=== PATIENT | male | born 1955 | race Two or more races ===

== ENCOUNTER 2019-09-04 22:07 | Inpatient (IN) | payer MEDICAID, OTHER ==
[~2019-09-04] VITALS: Ht 165.1 cm; Wt 59.5 kg
--- NOTE | 2019-09-04 22:44 | NUR ---
Patient brought in by flight RN x2. Received report and assumed patient care. Patient resting comfortably, reports pain is bearable. Family member is at bedside. x2 provider at bedside, assessing right lower leg. Awaiting orders.
[2019-09-04] MEDS ORDERED: DIPH,PERTUSS(ACELL),TET VAC/PF 0.5 ML IM-VACC ONE ×2 (22:54→23:00)
[2019-09-04] MEDS ORDERED: MORPHINE SULFATE 4 MG/ML, 1ML IVPush PRN (23:00)
[2019-09-04] MEDS ORDERED: PLEASE ENTER ALLERGIES MC SCH (23:00)
[2019-09-04] MEDS ORDERED: SODIUM CHLORIDE FLUSH 10ML SYR IVF ONE (23:00)
[2019-09-05] MEDS ORDERED: SUCCINYLCHOLINE 20 MG/ML, 10ML ONE
[2019-09-05] MEDS ORDERED: PROPOFOL 10 MG/ML, 20ML ONE
[2019-09-05] MEDS ORDERED: ONDANSETRON 2MG/ML, 2ML ONE
[2019-09-05] MEDS ORDERED: CEFAZOLIN 1,000 MG ONE
[2019-09-05] MEDS ORDERED: FENTANYL PF 100 MCG/2ML ONE (00:26)
[2019-09-05] MEDS ORDERED: OXYcodone 5 MG/5 ML ORAL.SOL UDC ONE (00:26)
[2019-09-05] MEDS ORDERED: hydrALAzine 20 MG/ML, 1ML IV PRN (00:30)
[2019-09-05] MEDS ORDERED: KETOROLAC 30 MG/1 ML IV PRN ×2 (00:30→03:30)
[2019-09-05] MEDS: FENTANYL PF 100 MCG/2ML IV PRN ×3 (00:30→00:47)
[2019-09-05] MEDS ORDERED: PROMETHAZINE 25 MG/ML, 1ML IV PRN (00:30)
[2019-09-05] MEDS ORDERED: ONDANSETRON 2MG/ML, 2ML IVPush PRN (00:30)
[2019-09-05] MEDS ORDERED: ALBUTEROL SULFATE 2.5 MG/3 ML NPPB PRN (00:30)
[2019-09-05] MEDS ORDERED: OXYcodone 5 MG/5 ML ORAL.SOL UDC PO PRN (00:30)
[2019-09-05] MEDS ORDERED: DIAZEPAM 5 MG/ML, 2ML IV PRN ×2 (00:30)
[2019-09-05] MEDS ORDERED: LABETALOL 5MG/ML, 20ML IV PRN (00:30)
[2019-09-05] MEDS ORDERED: METOCLOPRAMIDE 5 MG/ML, 2ML IV PRN (00:30)
[2019-09-05] MEDS ORDERED: MEPERIDINE/PF 25MG/0.5ML IVPush PRN (00:30)
[2019-09-05] MEDS ORDERED: HYDROmorphone 1 MG/ML, 1ML INJ ONE (00:50)
[2019-09-05] MEDS: HYDROmorphone 1 MG/ML, 1ML INJ IV PRN ×2 (00:54→01:06)
[2019-09-05 02:02] VITALS: BP 107/57
[2019-09-05] MEDS: CEFAZOLIN PMX 2GM/50ML 50 ML IVPB SCH ×3 (03:24→19:44)
[2019-09-05] MEDS ORDERED: OXYcodone IR 5MG TABLET PO PRN (03:30)
[2019-09-05] MEDS ORDERED: ONDANSETRON 2MG/ML, 2ML IV PRN (03:30)
[2019-09-05 06:59] VITALS: BP 104/65
[2019-09-05] MEDS: morphine SULFATE 10 MG/ML, 1ML IV PRN ×2 (08:48→20:04)
[2019-09-05] MEDS ORDERED: CHLORDIAZEPOXIDE 10 MG CAPSULE PO PRN (11:30)
[2019-09-05] MEDS ORDERED: CHLORDIAZEPOXIDE 25 MG CAPSULE PO PRN ×2 (11:30)
[2019-09-05] MEDS ORDERED: NICOTINE 14MG/24 HR PATCH.TD24 TD ONE (11:30)
[2019-09-05 12:41] LABS: ANION GAP 8 mmol/L (5-15); CALCIUM 7.9 mg/dL (8.5-10.1); CHLORIDE 103 mmol/L (98-107)
[2019-09-05 13:02] LABS: MEAN CORPUSCULAR HEMOGLOBIN 28.6 pg (27.5-34.5); MEAN CORPUSCULAR HGB CONC 32.7 g/dL (33.2-36.2); MEAN CORPUSCULAR VOLUME 87.5 fL (81-97); PLATELET COUNT 217 x10^3/uL (130-400); RED BLOOD COUNT 3.37 x10^6/uL (4.38-5.82); RED CELL DISTRIBUTION WIDTH 22.2 % (9.4-14.8)
[2019-09-05 13:36] VITALS: BP 110/68
[2019-09-05 13:49] LABS: MD YES
[2019-09-05 13:51] LABS: LYMPH#(MANUAL) 1.17 x10^3/uL (1-3.4); LYMPHS% (MANUAL) 13 % (22-44); MONOS#(MANUAL) 0.81 x10^3/uL (0.3-2.7); MONOS% (MANUAL) 9 % (2-9); SEG#(MANUAL) 7.02 x10^3/uL (1.8-6.8); SEGS% (MANUAL) 78 % (42-75)
[2019-09-05 13:52] LABS: ANISOCYTOSIS 2+; HYPOCHROMIA 1+; POLYCHROMASIA 1+; TARGET CELLS 1+
[2019-09-05 13:53] LABS: <PLATELET ESTIMATE> ADEQUATE; <PLT MORPHOLOGY> NORMAL PLT MORPH; TEAR DROPS 1+
[2019-09-05] MEDS: SODIUM CHLORIDE 0.9% 1,000 ML IV SCH (14:09)
[2019-09-05] MEDS: ENOXAPARIN 40 MG/0.4 ML SQ SCH (14:09)
[2019-09-05] MEDS: DOCUSATE 100 MG CAPSULE PO SCH ×2 (14:09→20:04)
[2019-09-05 19:15] VITALS: BP 117/74
[2019-09-06 00:06] VITALS: BP 114/70
[2019-09-06] MEDS: SODIUM CHLORIDE 0.9% 1,000 ML IV SCH ×7 (00:23→23:23)
[2019-09-06] MEDS: CEFAZOLIN PMX 2GM/50ML 50 ML IVPB SCH ×3 (03:17→19:17)
[2019-09-06 04:59] LABS: CREATININE 0.46 mg/dL (0.7-1.3)
[2019-09-06 06:28] VITALS: BP 132/75
[2019-09-06] MEDS: FOLIC ACID 1 MG TABLET PO SCH (08:01)
[2019-09-06] MEDS: DOCUSATE 100 MG CAPSULE PO SCH ×2 (08:01→20:42)
[2019-09-06] MEDS: ENOXAPARIN 40 MG/0.4 ML SQ SCH (08:02)
[2019-09-06] MEDS: THIAMINE 100MG TABLET PO SCH (08:03)
[2019-09-06 12:57] VITALS: BP 116/78
[2019-09-06] MEDS: morphine SULFATE 10 MG/ML, 1ML IV PRN (13:13)
[2019-09-06 19:05] VITALS: BP 116/78
[2019-09-07 02:25] VITALS: BP 120/68
[2019-09-07] MEDS: CEFAZOLIN PMX 2GM/50ML 50 ML IVPB SCH (03:17)
[2019-09-07 05:24] LABS: CALCIUM 7.9 mg/dL (8.5-10.1); CHLORIDE 99 mmol/L (98-107)
[2019-09-07 05:30] LABS: ALANINE AMINOTRANSFERASE 24 U/L (12-78); ALBUMIN 2.7 g/dL (3.4-5.0); ALKALINE PHOSPHATASE 63 U/L (45-117); ANION GAP 10 mmol/L (5-15); BILIRUBIN,TOTAL 0.5 mg/dL (0.2-1.0); CREATININE 0.54 mg/dL (0.7-1.3); TOTAL PROTEIN 6.6 g/dL (6.4-8.2)
[2019-09-07 05:43] LABS: MEAN CORPUSCULAR HEMOGLOBIN 28.9 pg (27.5-34.5); MEAN CORPUSCULAR HGB CONC 33.3 g/dL (33.2-36.2); MEAN CORPUSCULAR VOLUME 86.8 fL (81-97); MEAN PLATELET VOLUME 9.1 fL (7.4-10.4); PLATELET COUNT 196 x10^3/uL (130-400); RED BLOOD COUNT 3.01 x10^6/uL (4.38-5.82); RED CELL DISTRIBUTION WIDTH 21.4 % (9.4-14.8)
[2019-09-07 06:13] LABS: MD YES
[2019-09-07 06:16] LABS: ANISOCYTOSIS 1+; EOS#(MANUAL) 0.26 x10^3/uL (0.0-0.4); EOS% (MANUAL) 3 % (1-7); HYPOCHROMIA 1+; LYMPHS% (MANUAL) 14 % (22-44); MONOS#(MANUAL) 0.86 x10^3/uL (0.3-2.7); MONOS% (MANUAL) 10 % (2-9); POLYCHROMASIA 1+; SEG#(MANUAL) 6.28 x10^3/uL (1.8-6.8); SEGS% (MANUAL) 73 % (42-75); TARGET CELLS 1+; TEAR DROPS 1+
[2019-09-07 06:17] LABS: <PLATELET ESTIMATE> ADEQUATE; <PLT MORPHOLOGY> NORMAL PLT MORPH
[2019-09-07 06:47] VITALS: BP 98/63
[2019-09-07] MEDS: THIAMINE 100MG TABLET PO SCH (07:21)
[2019-09-07] MEDS: FOLIC ACID 1 MG TABLET PO SCH (07:21)
[2019-09-07] MEDS: DOCUSATE 100 MG CAPSULE PO SCH (07:21)
[2019-09-07] MEDS: ENOXAPARIN 40 MG/0.4 ML SQ SCH ×2 (07:21→09:00)
[2019-09-07] MEDS ORDERED: MIDAZOLAM 1 MG/ML, 2ML ONE (09:13)
[2019-09-07] MEDS ORDERED: FENTANYL PF 250 MCG/5ML ONE (09:14)
[2019-09-07] MEDS ORDERED: LIDOCAINE 2% 100MG/5ML SYRINGE ONE (09:16)
[2019-09-07] MEDS ORDERED: PROPOFOL 10 MG/ML, 20ML ONE (09:47)
[2019-09-07] MEDS ORDERED: ROCURONIUM 10MG/ML,5ML ONE (09:47)
[2019-09-07] MEDS ORDERED: CEFAZOLIN 1,000 MG ONE (09:47)
[2019-09-07] MEDS ORDERED: NEOSTIGMINE 1 MG/ML, 10ML ONE (09:47)
[2019-09-07] MEDS ORDERED: DEXAMETHASONE 4 MG/ML, 1ML ONE (09:47)
[2019-09-07] MEDS ORDERED: GLYCOPYRROLATE 0.2MG/1ML, 5ML ONE (09:47)
[2019-09-07] MEDS ORDERED: ONDANSETRON 2MG/ML, 2ML ONE (09:47)
[2019-09-07] MEDS ORDERED: SUCCINYLCHOLINE 20 MG/ML, 10ML ONE (09:47)
[2019-09-07] MEDS ORDERED: OXYcodone 5 MG/5 ML ORAL.SOL UDC PO PRN (10:00)
[2019-09-07] MEDS ORDERED: ACETAMINOPHEN 325 MG TABLET PO PRN (10:00)
[2019-09-07] MEDS ORDERED: LORazepam 2 MG/ML, 1ML IVPush PRN (10:00)
[2019-09-07] MEDS ORDERED: ONDANSETRON 2MG/ML, 2ML IV PRN (10:00)
[2019-09-07] MEDS ORDERED: LABETALOL 5MG/ML, 20ML IV PRN (10:00)
[2019-09-07] MEDS ORDERED: FENTANYL PF 100 MCG/2ML IV PRN (10:00)
[2019-09-07] MEDS ORDERED: hydrALAzine 20 MG/ML, 1ML IV PRN (10:00)
[2019-09-07] MEDS ORDERED: HYDROmorphone 2 MG/ML, 1ML IVPush PRN (10:00)
[2019-09-07] MEDS ORDERED: ONDANSETRON ODT 8 MG PO PRN (10:00)
[2019-09-07] MEDS ORDERED: PROMETHAZINE 25 MG SUPP PR PRN (10:00)
[2019-09-07] MEDS: SODIUM CHLORIDE 0.9% 1,000 ML IV SCH ×3 (11:53→22:40)
[2019-09-07] MEDS ORDERED: CEFAZOLIN 2,000 MG in SODIUM CHLORIDE 0.9% 50 ML IV SCH (12:00)
[2019-09-07] MEDS ORDERED: KETOROLAC 30 MG/1 ML IV PRN (12:00)
[2019-09-07] MEDS ORDERED: DOCUSATE 100 MG CAPSULE PO PRN (12:00)
[2019-09-07] MEDS ORDERED: morphine SULFATE 10 MG/ML, 1ML IVPush PRN (12:00)
[2019-09-07] MEDS ORDERED: ONDANSETRON 2MG/ML, 2ML IVPush PRN (12:00)
[2019-09-07 12:36] VITALS: BP 108/68
[2019-09-07] MEDS: OXYcodone IR 5MG TABLET PO PRN ×2 (13:07→19:49)
[2019-09-07] MEDS ORDERED: POTASSIUM CHLORIDE 20 MEQ TAB.ER.PRT PO ONE (13:30)
[2019-09-07 20:17] VITALS: BP 106/65
[2019-09-08] VITALS (8 sets, daily range): BP systolic 89–114; BP diastolic 68–80
[2019-09-08] MEDS: SODIUM CHLORIDE 0.9% 1,000 ML IV SCH ×3 (00:16→22:57)
[2019-09-08 05:25] LABS: ANION GAP 6 mmol/L (5-15); CALCIUM 7.9 mg/dL (8.5-10.1); CHLORIDE 104 mmol/L (98-107)
[2019-09-08 05:27] LABS: CREATININE 0.41 mg/dL (0.7-1.3)
[2019-09-08 05:36] LABS: MEAN PLATELET VOLUME 8.3 fL (7.4-10.4); PLATELET COUNT 221 x10^3/uL (130-400); RED BLOOD COUNT 2.33 x10^6/uL (4.38-5.82); RED CELL DISTRIBUTION WIDTH 21.6 % (9.4-14.8)
[2019-09-08 05:40] LABS: MD YES
[2019-09-08 05:42] LABS: ANISOCYTOSIS 1+; HYPOCHROMIA 1+; LYMPH#(MANUAL) 1.84 x10^3/uL (1-3.4); LYMPHS% (MANUAL) 20 % (22-44); MONOS#(MANUAL) 1.38 x10^3/uL (0.3-2.7); MONOS% (MANUAL) 15 % (2-9); POLYCHROMASIA 1+; SEG#(MANUAL) 5.98 x10^3/uL (1.8-6.8); SEGS% (MANUAL) 65 % (42-75); TARGET CELLS 1+
[2019-09-08 05:43] LABS: <PLATELET ESTIMATE> ADEQUATE; <PLT MORPHOLOGY> NORMAL PLT MORPH; TEAR DROPS 1+
[2019-09-08] MEDS: FOLIC ACID 1 MG TABLET PO SCH (08:03)
[2019-09-08] MEDS: THIAMINE 100MG TABLET PO SCH (08:04)
[2019-09-08] MEDS: CHLORDIAZEPOXIDE 25 MG CAPSULE PO PRN ×3 (08:04→12:11)
[2019-09-08] MEDS: ENOXAPARIN 40 MG/0.4 ML SQ SCH ×2 (08:04→09:00)
[2019-09-08] MEDS: LORazepam 2 MG/ML, 1ML IVPush PRN ×2 (11:10→11:24)
[2019-09-08] MEDS ORDERED: HYDROcodone/APAP 5/325 TABLET PO PRN (11:30)
[2019-09-08] MEDS ORDERED: NICOTINE 21 MG/24 HR PATCH.TD24 ONE (11:49)
[2019-09-08] MEDS ORDERED: NICOTINE 21 MG/24 HR PATCH.TD24 TD ONE (12:00)
[2019-09-08] MEDS ORDERED: PHENOBARBITAL ETOH DETOX PER PHARMACY MC PRN (13:00)
[2019-09-08] MEDS ORDERED: SODIUM CHLORIDE 0.9% IV ONE ×3 (13:30→16:00)
[2019-09-08] MEDS ORDERED: PHENOBARBITAL SODIUM IV ONE ×3 (13:30→16:00)
[2019-09-08] MEDS: POTASSIUM CHLORIDE 20 MEQ, MAGNESIUM SULFATE 1 GM, FOLIC ACID 1 MG, THIAMINE 200 MG, MV... IV SCH (15:31)
[2019-09-08] MEDS: DEXMEDETOMIDINE 200 MCG in SODIUM CHLORIDE 0.9% 48 ML IV PRN ×2 (20:52→23:25)
[2019-09-08 21:24] LABS: FIO2 ROOM AIR %
[2019-09-08] MEDS: PHENOBARBITAL SODIUM 65 MG/ML, 1ML IM SCH (22:02)
[2019-09-09 04:47] LABS: MEAN CORPUSCULAR HEMOGLOBIN 29.8 pg (27.5-34.5); MEAN CORPUSCULAR HGB CONC 33.6 g/dL (33.2-36.2); MEAN CORPUSCULAR VOLUME 88.7 fL (81-97); MEAN PLATELET VOLUME 8.3 fL (7.4-10.4); PLATELET COUNT 256 x10^3/uL (130-400); RED BLOOD COUNT 2.84 x10^6/uL (4.38-5.82)
[2019-09-09 04:53] LABS: ALBUMIN 2.4 g/dL (3.4-5.0); ANION GAP 7 mmol/L (5-15); CALCIUM 7.9 mg/dL (8.5-10.1); CHLORIDE 108 mmol/L (98-107)
[2019-09-09 04:56] LABS: ALANINE AMINOTRANSFERASE 19 U/L (12-78); ALKALINE PHOSPHATASE 49 U/L (45-117); BILIRUBIN,TOTAL 0.8 mg/dL (0.2-1.0); CREATININE 0.31 mg/dL (0.7-1.3); TOTAL PROTEIN 6.2 g/dL (6.4-8.2)
[2019-09-09 05:39] LABS: MD YES
[2019-09-09 05:41] LABS: EOS#(MANUAL) 0.46 x10^3/uL (0.0-0.4); EOS% (MANUAL) 6 % (1-7); LYMPH#(MANUAL) 1.62 x10^3/uL (1-3.4); LYMPHS% (MANUAL) 21 % (22-44); MONOS#(MANUAL) 0.92 x10^3/uL (0.3-2.7); MONOS% (MANUAL) 12 % (2-9); SEGS% (MANUAL) 61 % (42-75)
[2019-09-09 05:46] LABS: <PLATELET ESTIMATE> ADEQUATE; <PLT MORPHOLOGY> NORMAL PLT MORPH; ANISOCYTOSIS 1+; POLYCHROMASIA 1+
[2019-09-09] MEDS: DEXMEDETOMIDINE 200 MCG in SODIUM CHLORIDE 0.9% 48 ML IV PRN (06:18)
[2019-09-09] MEDS: SODIUM CHLORIDE 0.9% 1,000 ML IV SCH ×2 (07:32→23:55)
[2019-09-09] MEDS: PHENOBARBITAL SODIUM 65 MG/ML, 1ML IM SCH (09:41)
[2019-09-09] MEDS: POTASSIUM CHLORIDE 20 MEQ, MAGNESIUM SULFATE 1 GM, FOLIC ACID 1 MG, THIAMINE 200 MG, MV... IV SCH (15:56)
[2019-09-09 18:42] VITALS: BP 110/71
[2019-09-09] MEDS: NICOTINE 14MG/24 HR PATCH.TD24 TD SCH (20:57)
[2019-09-09] MEDS: PHENOBARBITAL 20 MG/5 ML ORAL SOL PO SCH (20:58)
[2019-09-10 01:40] VITALS: BP 100/68
[2019-09-10 07:01] VITALS: BP 106/62
[2019-09-10 08:25] LABS: ALANINE AMINOTRANSFERASE 21 U/L (12-78); ALBUMIN 2.5 g/dL (3.4-5.0); ANION GAP 5 mmol/L (5-15); CHLORIDE 104 mmol/L (98-107); MEAN CORPUSCULAR HEMOGLOBIN 29.2 pg (27.5-34.5); MEAN CORPUSCULAR HGB CONC 32.5 g/dL (33.2-36.2); MEAN CORPUSCULAR VOLUME 89.9 fL (81-97); MEAN PLATELET VOLUME 7.9 fL (7.4-10.4); PLATELET COUNT 374 x10^3/uL (130-400); RED BLOOD COUNT 3.16 x10^6/uL (4.38-5.82); RED CELL DISTRIBUTION WIDTH 20.8 % (9.4-14.8)
[2019-09-10 08:28] LABS: ALKALINE PHOSPHATASE 59 U/L (45-117); BILIRUBIN,TOTAL 0.6 mg/dL (0.2-1.0); CREATININE 0.59 mg/dL (0.7-1.3); TOTAL PROTEIN 6.4 g/dL (6.4-8.2)
[2019-09-10 09:08] LABS: MD YES
[2019-09-10 09:09] LABS: ANISOCYTOSIS 1+; EOS% (MANUAL) 4 % (1-7); LYMPH#(MANUAL) 1.73 x10^3/uL (1-3.4); LYMPHS% (MANUAL) 23 % (22-44); MONOS#(MANUAL) 0.75 x10^3/uL (0.3-2.7); MONOS% (MANUAL) 10 % (2-9); POLYCHROMASIA 1+; SEG#(MANUAL) 4.73 x10^3/uL (1.8-6.8); SEGS% (MANUAL) 63 % (42-75)
[2019-09-10 09:10] LABS: <PLATELET ESTIMATE> ADEQUATE; <PLT MORPHOLOGY> NORMAL PLT MORPH; HYPOCHROMIA 1+
[2019-09-10] MEDS: FOLIC ACID 1 MG TABLET PO SCH (11:47)
[2019-09-10] MEDS: THIAMINE 100MG TABLET PO SCH (11:47)
[2019-09-10] MEDS: MULTIVITAMIN 1 TABLET PO SCH (11:47)
[2019-09-10] MEDS: PHENOBARBITAL 20 MG/5 ML ORAL SOL PO SCH ×2 (11:47→22:17)
[2019-09-10] MEDS: SODIUM CHLORIDE 0.9% 1,000 ML IV SCH ×2 (11:48→20:26)
[2019-09-10 17:30] VITALS: BP 105/71
[2019-09-10] MEDS: NICOTINE 14MG/24 HR PATCH.TD24 TD SCH (20:26)
[2019-09-10 20:40] VITALS: BP 118/71
[2019-09-11 00:47] VITALS: BP 103/66
[2019-09-11] MEDS: SODIUM CHLORIDE 0.9% 1,000 ML IV SCH ×2 (03:23→11:38)
[2019-09-11 06:19] LABS: CHLORIDE 107 mmol/L (98-107)
[2019-09-11 06:32] LABS: MD YES
[2019-09-11 06:33] LABS: MEAN CORPUSCULAR HEMOGLOBIN 29.3 pg (27.5-34.5); MEAN CORPUSCULAR HGB CONC 32.7 g/dL (33.2-36.2); MEAN CORPUSCULAR VOLUME 89.9 fL (81-97); MEAN PLATELET VOLUME 7.4 fL (7.4-10.4); PLATELET COUNT 413 x10^3/uL (130-400); RED BLOOD COUNT 2.98 x10^6/uL (4.38-5.82); RED CELL DISTRIBUTION WIDTH 21.6 % (9.4-14.8)
[2019-09-11 06:35] LABS: ANION GAP 6 mmol/L (5-15); CALCIUM 8.4 mg/dL (8.5-10.1); CREATININE 0.45 mg/dL (0.7-1.3)
[2019-09-11 06:36] LABS: <PLATELET ESTIMATE> INCREASED; <PLT MORPHOLOGY> NORMAL PLT MORPH; ANISOCYTOSIS 1+; BAND#(MANUAL) 0.07 x10^3/uL; BANDS%(MANUAL) 1 % (0-7); BASOS#(MANUAL) 0.07 x10^3/uL (0-0.1); BASOS% (MANUAL) 1 % (0-1); HYPOCHROMIA 1+; LYMPH#(MANUAL) 1.61 x10^3/uL (1-3.4); LYMPHS% (MANUAL) 24 % (22-44); MONOS#(MANUAL) 1.41 x10^3/uL (0.3-2.7); MONOS% (MANUAL) 21 % (2-9); POLYCHROMASIA 1+; SEG#(MANUAL) 3.55 x10^3/uL (1.8-6.8); SEGS% (MANUAL) 53 % (42-75)
[2019-09-11 06:37] LABS: TARGET CELLS 1+
[2019-09-11 08:18] VITALS: BP 106/69
[2019-09-11] MEDS: THIAMINE 100MG TABLET PO SCH (08:48)
[2019-09-11] MEDS: FOLIC ACID 1 MG TABLET PO SCH (08:48)
[2019-09-11] MEDS: MULTIVITAMIN 1 TABLET PO SCH (08:48)
[2019-09-11] MEDS: PHENOBARBITAL 20 MG/5 ML ORAL SOL PO SCH (09:59)
[2019-09-11 14:20] VITALS: BP 114/74
[2019-09-11] MEDS ORDERED: THIA100T67 PO (14:21)
[2019-09-11] MEDS ORDERED: MULT1TAB60 PO (14:21)
[2019-09-11] MEDS ORDERED: FOLI-17 PO (14:21)
[2019-09-12] MEDS ORDERED: PHENOBARBITAL 20 MG/5 ML ORAL SOL PO SCH (22:00)
[2019-09-13] MEDS ORDERED: PHENOBARBITAL 20 MG/5 ML ORAL SOL PO SCH (22:00)
== END 2019-09-11 18:15 | disposition home or self-care (01) | DRG 313 ==
LOC: ED 23:17 → EDIP 09-05 02:45 → 4NW 09-05 02:52 → 4NE 09-05 16:47 → CCU 09-08 13:05 → 4WST 09-09 18:14
PROVIDERS: ADMIT Emergency Medicine; ATTEND Internal Medicine
PROC: 0KNS0ZZ Release Right Lower Leg Muscle, Open Approach (ICD-10-PCS; 2019-09-04)
PROC: 0KNS0ZZ Release Right Lower Leg Muscle, Open Approach (ICD-10-PCS; 2019-09-04)
PROC: 0KNS0ZZ Release Right Lower Leg Muscle, Open Approach (ICD-10-PCS; 2019-09-04)
PROC: 0KNS0ZZ Release Right Lower Leg Muscle, Open Approach (ICD-10-PCS; 2019-09-04)
PROC: 0QSG35Z Reposition Right Tibia with External Fixation Device, Percutaneous Approach (ICD-10-PCS; principal; 2019-09-04 21:45)
PROC: 0QSG06Z Reposition Right Tibia with Intramedullary Internal Fixation Device, Open Approach (ICD-10-PCS; 2019-09-07)
PROC: 0QPGX5Z Removal of External Fixation Device from Right Tibia, External Approach (ICD-10-PCS; 2019-09-07)
PROC: 30233N1 Transfusion of Nonautologous Red Blood Cells into Peripheral Vein, Percutaneous Approach (ICD-10-PCS; 2019-09-08)
DX: S82.251A Displaced comminuted fracture of shaft of right tibia, initial encounter for closed fracture (principal); G93.41 Metabolic encephalopathy; F10.231 Alcohol dependence with withdrawal delirium; E44.0 Moderate protein-calorie malnutrition; T79.A21A Traumatic compartment syndrome of right lower extremity, initial encounter; D62 Acute posthemorrhagic anemia; E83.51 Hypocalcemia; E87.1 Hypo-osmolality and hyponatremia; Z68.21 Body mass index [BMI] 21.0-21.9, adult; F17.200 Nicotine dependence, unspecified, uncomplicated; S82.451A Displaced comminuted fracture of shaft of right fibula, initial encounter for closed fracture; W55.22XA Struck by cow, initial encounter; Y93.89 Activity, other specified; Y92.89 Other specified places as the place of occurrence of the external cause; Y99.8 Other external cause status
CPT/HCPCS: 36415; 36600; 76000; 80048; 80053; 82330; 82565; 82803; 83735; 84100; 85025; 86850; 86900; 86923; 87081; 90715; 93005; 93926; C1713; G0378; J0690; J1100; J1170; J1650; J1885; J2250; J2405; J2560; J2704; J2710; J3010; J3411; J3475; J3480; J7070; J0330; J2060; J2270; J7030; P9016